=== PATIENT | female | born 1965 | race Caucasian/White ===

== ENCOUNTER → 2021-02-09 | Outpatient (CLI) | payer OTHER ==
[~2021-02-09] MED LIST: CLEARLAX17 GM PO; CYMBALTA30 MG PO; FLEXERIL PO; LEVAQUIN 500 M500 M2 PO; LEVO-T100 MCG PO; LEVOTHYROXIN0.088 MG PO; MEDICAL MARIJUANA; MUCINEX600 MG PO; OMEPRAZOLE40 MG PO; PRILOSEC20 MG PO; PROBIOTIC1 EAC2 PO; SAVELLA100 MG PO; TRAZODONE HCL100 MG PO; VITAMIN B12 PO; VITAMIN D1000 UNI1 PO; VITAMIN D3125 MC1 PO; WELLBUTRIN SR150 MG PO
== END ==
LOC: M.PC 09:15
PROVIDERS: ATTEND Physical Medicine & Rehabilitation
DX: M50.122 Cervical disc disorder at C5-C6 level with radiculopathy (principal); M47.22 Other spondylosis with radiculopathy, cervical region; M48.02 Spinal stenosis, cervical region